=== PATIENT | female | born 1980 | race Caucasian/White ===

== ENCOUNTER → 2020-04-10 | Outpatient (CLI) | payer MEDICARE, OTHER ==
[~2020-04-10] MED LIST: AUGMENTIN 875-1 EACH PO; NAPROSYN500 MG PO
== END ==
LOC: KOH-I 10:06
DX: M25.562 Pain in left knee (principal); M25.561 Pain in right knee; R05 Cough; M54.5 Low back pain; M50.30 Other cervical disc degeneration, unspecified cervical region; M51.34 Other intervertebral disc degeneration, thoracic region; M51.36 Other intervertebral disc degeneration, lumbar region; M48.061 Spinal stenosis, lumbar region without neurogenic claudication; M89.8X6 Other specified disorders of bone, lower leg
CPT/HCPCS: 71046; 72050; 72070; 72100; 73564

== ENCOUNTER 2020-07-15 16:46 | Emergency (ER) | payer MEDICARE | END 2020-07-15 17:56 | disposition left against medical advice (07) | LOC: ER1 16:46 | DX: Z53.21 Procedure and treatment not carried out due to patient leaving prior to being seen by health care provider (principal) ==

== ENCOUNTER 2020-10-04 23:18 | Emergency (ER) | payer MEDICARE ==
[2020-10-05 00:56] LABS: HEMOGLOBIN 13.1 gm/dl (12.3-15.3); RED BLOOD COUNT 4.22 M/UL (4.00-5.10); WHITE BLOOD COUNT 7.2 K/UL (4.5-11.0)
[2020-10-05 01:20] LABS: BUN/CREATININE RATIO 16 (0-10)
== END 2020-10-05 03:42 | disposition home or self-care (01) ==
LOC: ER1 23:18
PROVIDERS: Physician Assistant
DX: R07.9 Chest pain, unspecified (principal); I10 Essential (primary) hypertension; F17.210 Nicotine dependence, cigarettes, uncomplicated; Z20.822 Contact with and (suspected) exposure to COVID-19
CPT/HCPCS: 0240U; 71045; 80053; 82550; 82553; 83874; 83880; 84484; 85025; 93005; 99285

== ENCOUNTER → 2020-12-05 | Outpatient (CLI) | payer MEDICARE | LOC: CT 11-15 10:00 | PROVIDERS: Family Medicine | DX: F11.21 Opioid dependence, in remission (principal); Z79.899 Other long term (current) drug therapy | CPT/HCPCS: 36415; 70491; 80048; Q9967 ==

== ENCOUNTER → 2021-07-09 | Outpatient (CLI) | payer MEDICARE | LOC: SLEEP 14:45 | DX: G47.33 Obstructive sleep apnea (adult) (pediatric) (principal); R53.83 Other fatigue | CPT/HCPCS: 95810 ==

== ENCOUNTER → 2021-08-22 | Outpatient (CLI) | payer MEDICARE | LOC: KOH-I 15:44 | DX: M25.511 Pain in right shoulder (principal); M79.621 Pain in right upper arm | CPT/HCPCS: 73030 ==

== ENCOUNTER → 2021-10-15 | Outpatient (CLI) | payer MEDICARE | LOC: KOH-I 10:30 | DX: G43.909 Migraine, unspecified, not intractable, without status migrainosus (principal) | CPT/HCPCS: 70450 ==